=== PATIENT | male | born 1970 | race Caucasian/White ===

== ENCOUNTER 2020-01-20 10:09 | Inpatient (IN) ==
[2020-01-20] MEDS ORDERED: Acetaminophen 325 MG TABLET PO PRN (17:25)
[2020-01-20] MEDS ORDERED: Naloxone 0.4 MG/ML INJ IVP PRN (17:25)
[2020-01-20] MEDS ORDERED: *HR* Heparin 5,000 UNIT/ML VIAL IVP ONE (17:33)
[2020-01-20] MEDS ORDERED: *HR* Heparin 5,000 UNIT/ML VIAL IVP PRN ×2 (17:33)
[2020-01-20] MEDS ORDERED: Heparin 25,000 UNIT/250 ML D5W 25,000 UNIT/250 ML IV.SOLN IVC SCH (17:45)
[2020-01-20] MEDS ORDERED: Vancomycin 1,250 MG/262.5 ML IV.SOLN IVPB ONE (17:45)
[2020-01-20 17:58] LABS: Eosinophils # 0.1 K/mcL (0.0-0.6); Hematocrit 34.9 % (37.5-50.1); Hemoglobin 11.3 g/dL (12.9-16.9); Mean Corpuscular HGB Conc 32.4 g/dL (31.6-35.5); Mean Corpuscular Hemoglobin 30.2 pg (28.0-33.3); Mean Corpuscular Volume 93.3 fL (83.0-100.0); Mean Platelet Volume 9.1 fL (9.4-12.4); Platelet Count 125 K/mcL (140-400); Red Blood Count 3.74 M/mcL (4.19-5.50); Red Cell Distribution Width 13.6 % (11.5-14.5); White Blood Count 4.9 K/mcL (4.3-11.1)
[2020-01-20 18:16] LABS: BUN/Creatinine Ratio 25 (6-26); Blood Urea Nitrogen 13 mg/dL (6-20); Calcium 7.5 mg/dL (8.6-10.3); Carbon Dioxide 20 mEq/L (23-29); Chloride 105 mEq/L (98-107); Glucose 110 mg/dL (70-105); Osmolality,Calculated 261 (280-300); Potassium 3.4 mEq/L (3.5-5.1); Sodium 125 mEq/L (136-145); eGFR For African Americans > 60 (> 60); eGFR For Non-African Americans > 60 (> 60)
[2020-01-20 18:19] LABS: Lymphocytes # 0.6 K/mcL (0.6-4.6); Monocytes # 0.2 K/mcL (0.0-1.3); Platelet Estimate Normal (Normal)
[2020-01-20 18:20] LABS: Toxic Granulation Present (Not Present)
[2020-01-20] MEDS: *HR* OxyCODONE Immed Rel 5 MG TABLET PO PRN (18:22)
[2020-01-20] MEDS ORDERED: 0.9 % Sodium Chloride 1,000 ML IVC SCH (18:30)
[2020-01-20 20:07] LABS: Vancomycin,Trough 6 mcg/mL (5-10)
[2020-01-20] MEDS ORDERED: 0.9 % Sodium Chloride 1,000 ML IVC ONE (21:12)
[2020-01-20] MEDS: Vancomycin 1,250 MG/262.5 ML IV.SOLN IVPB SCH (22:26)
[2020-01-21 01:44] LABS: Hematocrit 29.6 % (37.5-50.1); Hemoglobin 9.9 g/dL (12.9-16.9); Lymphocytes # 0.9 K/mcL (0.6-4.6); Mean Corpuscular HGB Conc 33.4 g/dL (31.6-35.5); Mean Corpuscular Hemoglobin 30.7 pg (28.0-33.3); Mean Corpuscular Volume 91.9 fL (83.0-100.0); Mean Platelet Volume 9.5 fL (9.4-12.4); Platelet Count 127 K/mcL (140-400); Red Blood Count 3.22 M/mcL (4.19-5.50); Red Cell Distribution Width 13.6 % (11.5-14.5); White Blood Count 6.6 K/mcL (4.3-11.1)
[2020-01-21 01:45] LABS: INR 1.6; Prothrombin Time 17.8 Seconds (9.4-12.1)
[2020-01-21 02:11] LABS: BUN/Creatinine Ratio 22 (6-26); Blood Urea Nitrogen 11 mg/dL (6-20); Calcium 6.9 mg/dL (8.6-10.3); Carbon Dioxide 18 mEq/L (23-29); Chloride 104 mEq/L (98-107); Glucose 96 mg/dL (70-105); Osmolality,Calculated 265 (280-300); Potassium 3.5 mEq/L (3.5-5.1); Sodium 128 mEq/L (136-145); eGFR For African Americans > 60 (> 60); eGFR For Non-African Americans > 60 (> 60)
[2020-01-21 02:25] LABS: Eosinophils # 0.4 K/mcL (0.0-0.6); Monocytes # 0.4 K/mcL (0.0-1.3); Neutrophils # 4.9 K/mcL (1.6-8.9); Platelet Estimate Normal (Normal); Toxic Granulation Present (Not Present)
[2020-01-21] MEDS: *HR* OxyCODONE Immed Rel 5 MG TABLET PO PRN ×2 (02:25→12:39)
[2020-01-21] MEDS: Vancomycin 1,250 MG/262.5 ML IV.SOLN IVPB SCH ×2 (06:17→12:31)
[2020-01-21] MEDS ORDERED: Vancomycin 1,250 MG/262.5 ML IV.SOLN IVPB SCH ×2 (07:00→21:00)
[2020-01-21 13:05] LABS: Hemoglobin 10.4 g/dL (12.9-16.9)
[2020-01-21 13:22] LABS: INR 1.5; Prothrombin Time 16.8 Seconds (9.4-12.1)
[2020-01-21] MEDS ORDERED: Ethanol\\Acetic Acid\\Na Ace\\Ben 1,000 ML IRRIG.SOLN IR ONE ×2 (14:06→16:28)
[2020-01-21] MEDS ORDERED: *HR* Midazolam HCl 2 MG/2 ML VIAL ONE ×2 (14:43→16:05)
[2020-01-21] MEDS ORDERED: *HR* Propofol 200 MG/20 ML VIAL IVP ONE ×2 (14:43→15:41)
[2020-01-21] MEDS ORDERED: *HR* Succinylcholine 200 MG/10 ML VIAL IVP ONE (14:43)
[2020-01-21] MEDS ORDERED: Lidocaine -MPF 2% 2 ML VIAL ONE ×2 (14:43→15:41)
[2020-01-21] MEDS ORDERED: Dexamethasone 4 MG/ML VIAL ONE ×2 (14:43→15:46)
[2020-01-21] MEDS ORDERED: *HR* FentaNYL (PF) 100 MCG/2 ML VIAL ONE ×2 (14:43→16:05)
[2020-01-21] MEDS ORDERED: Ondansetron 4 MG/2 ML VIAL ONE ×2 (14:43→15:46)
[2020-01-21] MEDS ORDERED: Tranexamic Acid 1,000 MG/10 ML VIAL ONE (14:47)
[2020-01-21] MEDS ORDERED: ROPIVACAINE/PF/NS 0.25% 1 EACH SYRINGE INTRAART ONE (14:50)
[2020-01-21] MEDS ORDERED: Ropivacaine/PF 0.5% 30 ML VIAL ONE (14:50)
[2020-01-21] MEDS ORDERED: Ondansetron 4 MG/2 ML VIAL IVP ONE (14:54)
[2020-01-21] MEDS ORDERED: *HR* HYDROmorphone PF 0.5 MG/0.5 ML SYRINGE IVP PRN (14:54)
[2020-01-21] MEDS ORDERED: *HR* OxyCODONE Immed Rel 5 MG TABLET PO PRN (14:54)
[2020-01-21] MEDS ORDERED: Total Joint Mixture (50 ml) INTRAART ONE (15:30)
[2020-01-21] MEDS ORDERED: Clindamycin 900 MG/50 ML 900 MG/50 ML IV.SOLN IVPB ONE (15:42)
[2020-01-21] MEDS ORDERED: *HR* HYDROMORPHONE 2 MG/ML VIAL ONE (16:22)
[2020-01-21] MEDS ORDERED: *HR* PHENYLEPHRINE 1,000 MCG/10 ML SYRINGE IVP ONE (16:43)
[2020-01-21 17:41] LABS: Hematocrit 27.4 % (37.5-50.1); Hemoglobin 9.2 g/dL (12.9-16.9)
[2020-01-21] MEDS ORDERED: Naloxone 0.4 MG/ML INJ IVP PRN (18:19)
[2020-01-21] MEDS ORDERED: MOM Conc 10 ML UD.LIQ PO PRN (18:19)
[2020-01-21] MEDS ORDERED: Ringers Solution, Lactated 1,000 ML IVC SCH (18:19)
[2020-01-21] MEDS ORDERED: Sennosides 8.6 MG TABLET PO PRN (18:19)
[2020-01-21] MEDS ORDERED: *HR* Promethazine 25 MG/ML VIAL IVP PRN (18:19)
[2020-01-21] MEDS ORDERED: Ondansetron 4 MG/2 ML VIAL IVP PRN (18:19)
[2020-01-21] MEDS ORDERED: Perflutren Lipid Microsphere 1.3 ML in 0.9 % Sodium Chloride 8.7 ML IVP ONE (18:55)
[2020-01-21] MEDS: Gabapentin 300 MG CAPSULE PO SCH (19:48)
[2020-01-21] MEDS: Ascorbic Acid 500 MG TABLET PO SCH (19:48)
[2020-01-21] MEDS ORDERED: *HR* Rivaroxaban 10 MG TABLET PO SCH (21:00)
[2020-01-21] MEDS: Vancomycin 1,500 MG/265 ML IV.SOLN IVPB SCH (23:08)
[2020-01-22 02:39] LABS: Hematocrit 23.6 % (37.5-50.1); Hemoglobin 7.9 g/dL (12.9-16.9); Mean Corpuscular HGB Conc 33.5 g/dL (31.6-35.5); Mean Corpuscular Hemoglobin 31.3 pg (28.0-33.3); Mean Corpuscular Volume 93.7 fL (83.0-100.0); Mean Platelet Volume 9.8 fL (9.4-12.4); Platelet Count 154 K/mcL (140-400); Red Blood Count 2.52 M/mcL (4.19-5.50); Red Cell Distribution Width 13.9 % (11.5-14.5)
[2020-01-22 02:43] LABS: White Blood Count 15.2 K/mcL (4.3-11.1)
[2020-01-22 03:02] LABS: BUN/Creatinine Ratio 37 (6-26); Blood Urea Nitrogen 21 mg/dL (6-20); Calcium 6.5 mg/dL (8.6-10.3); Carbon Dioxide 15 mEq/L (23-29); Chloride 106 mEq/L (98-107); Glucose 246 mg/dL (70-105); Osmolality,Calculated 281 (280-300); Potassium 4.2 mEq/L (3.5-5.1); Sodium 130 mEq/L (136-145); eGFR For African Americans > 60 (> 60); eGFR For Non-African Americans > 60 (> 60)
[2020-01-22 03:12] LABS: Lymphocytes # 0.9 K/mcL (0.6-4.6); Monocytes # 0.3 K/mcL (0.0-1.3)
[2020-01-22 03:13] LABS: Platelet Estimate Normal (Normal)
[2020-01-22] MEDS: HYDROcodone BIT/Homatropine 5 MG TABLET PO PRN (04:46)
[2020-01-22] MEDS: Calcium Gluconate 1gm/50mL 1 GM/50 ML BAG IVPB SCH ×2 (07:50→09:15)
[2020-01-22] MEDS: Vancomycin 1,500 MG/265 ML IV.SOLN IVPB SCH ×3 (08:00→22:51)
[2020-01-22] MEDS: *HR* OxyCODONE Immed Rel 5 MG TABLET PO PRN ×3 (08:07→19:49)
[2020-01-22] MEDS: Gabapentin 300 MG CAPSULE PO SCH ×3 (09:12→19:49)
[2020-01-22] MEDS: Ascorbic Acid 500 MG TABLET PO SCH ×2 (09:12→16:40)
[2020-01-22] MEDS: Multivit/Ca/Min/Fe/FA 1 TAB TABLET PO SCH (09:12)
[2020-01-22] MEDS ORDERED: *HR* HYDROmorphone (PF) 1 MG/ML SYRINGE IVP PRN (11:54)
[2020-01-22] MEDS ORDERED: Heparin 25,000 UNIT/250 ML D5W 25,000 UNIT/250 ML IV.SOLN IVC SCH (12:00)
[2020-01-22 12:52] LABS: Hemoglobin 7.9 g/dL (12.9-16.9); Mean Corpuscular HGB Conc 34.3 g/dL (31.6-35.5); Mean Corpuscular Hemoglobin 31.5 pg (28.0-33.3); Mean Corpuscular Volume 91.6 fL (83.0-100.0); Mean Platelet Volume 9.5 fL (9.4-12.4); Platelet Count 237 K/mcL (140-400); Red Blood Count 2.51 M/mcL (4.19-5.50); Red Cell Distribution Width 13.7 % (11.5-14.5); White Blood Count 27.1 K/mcL (4.3-11.1)
[2020-01-22 12:54] LABS: Heparin anti-factor XA UFH 0.09 IU/mL (0.30-0.70)
[2020-01-22 12:55] LABS: INR 1.6; Prothrombin Time 18.6 Seconds (9.4-12.1)
[2020-01-22] MEDS: polyethylene glycoL 3350 17 GM POWD.PACK PO SCH (19:49)
[2020-01-22] MEDS ORDERED: *HR* Heparin 5,000 UNIT/ML VIAL IVP PRN ×2 (20:23)
[2020-01-23] MEDS: *HR* OxyCODONE Immed Rel 5 MG TABLET PO PRN ×5 (02:28→23:47)
[2020-01-23 02:35] LABS: Basophils % 0.2 %; Hemoglobin 7.4 g/dL (12.9-16.9)
[2020-01-23 02:37] LABS: Basophils # 0.1 K/mcL (0.0-0.2); Eosinophils % 0.1 %; Hematocrit 21.6 % (37.5-50.1); Immature Granulocytes % 6.7 % (0-4); Lymphocytes # 2.1 K/mcL (0.6-4.6); Lymphocytes % 7.4 %; Mean Corpuscular HGB Conc 34.3 g/dL (31.6-35.5); Mean Corpuscular Volume 90.4 fL (83.0-100.0); Mean Platelet Volume 9.6 fL (9.4-12.4); Monocytes # 1.4 K/mcL (0.0-1.3); Neutrophils # 22.4 K/mcL (1.6-8.9); Platelet Count 277 K/mcL (140-400); Red Blood Count 2.39 M/mcL (4.19-5.50); Red Cell Distribution Width 13.7 % (11.5-14.5); Segmented Neutrophils % 80.6 %; White Blood Count 27.8 K/mcL (4.3-11.1)
[2020-01-23 02:40] LABS: INR 1.6; Prothrombin Time 17.7 Seconds (9.4-12.1)
[2020-01-23 02:52] LABS: Platelet Estimate Normal (Normal); Polychromasia 1+ (Not Present)
[2020-01-23 02:55] LABS: BUN/Creatinine Ratio 30 (6-26); Blood Urea Nitrogen 17 mg/dL (6-20); Carbon Dioxide 21 mEq/L (23-29); Chloride 107 mEq/L (98-107); Glucose 119 mg/dL (70-105); Osmolality,Calculated 285 (280-300); Potassium 4.3 mEq/L (3.5-5.1); Sodium 136 mEq/L (136-145); eGFR For African Americans > 60 (> 60); eGFR For Non-African Americans > 60 (> 60)
[2020-01-23] MEDS ORDERED: *HR* Rivaroxaban 10 MG TABLET PO SCH (06:00)
[2020-01-23] MEDS: Vancomycin 1,500 MG/265 ML IV.SOLN IVPB SCH ×3 (06:32→23:38)
[2020-01-23] MEDS: HYDROcodone BIT/Homatropine 5 MG TABLET PO PRN (06:40)
[2020-01-23] MEDS: Ascorbic Acid 500 MG TABLET PO SCH ×2 (08:01→15:25)
[2020-01-23] MEDS: Gabapentin 300 MG CAPSULE PO SCH ×3 (08:02→19:26)
[2020-01-23] MEDS: Multivit/Ca/Min/Fe/FA 1 TAB TABLET PO SCH (08:02)
[2020-01-23] MEDS: polyethylene glycoL 3350 17 GM POWD.PACK PO SCH ×2 (08:02→19:26)
[2020-01-23] MEDS: *HR* Rivaroxaban 15 MG TABLET PO SCH ×2 (12:21→19:26)
[2020-01-24 02:41] LABS: Hemoglobin 7.1 g/dL (12.9-16.9); Mean Corpuscular HGB Conc 33.8 g/dL (31.6-35.5); Mean Corpuscular Hemoglobin 31.3 pg (28.0-33.3); Mean Corpuscular Volume 92.5 fL (83.0-100.0); Mean Platelet Volume 9.2 fL (9.4-12.4); Monocytes # 0.8 K/mcL (0.0-1.3); Nucleated Red Blood Cells 0.2 /100 WBC (0); Platelet Count 342 K/mcL (140-400); Red Blood Count 2.27 M/mcL (4.19-5.50); Red Cell Distribution Width 14.3 % (11.5-14.5); White Blood Count 20.1 K/mcL (4.3-11.1)
[2020-01-24 03:04] LABS: BUN/Creatinine Ratio 30 (6-26); Blood Urea Nitrogen 17 mg/dL (6-20); Calcium 6.9 mg/dL (8.6-10.3); Carbon Dioxide 20 mEq/L (23-29); Chloride 108 mEq/L (98-107); Glucose 95 mg/dL (70-105); Lymphocytes # 1.2 K/mcL (0.6-4.6); Neutrophils # 17.7 K/mcL (1.6-8.9); Osmolality,Calculated 277 (280-300); Platelet Estimate Normal (Normal); Potassium 4.2 mEq/L (3.5-5.1); Sodium 133 mEq/L (136-145); eGFR For African Americans > 60 (> 60); eGFR For Non-African Americans > 60 (> 60)
[2020-01-24] MEDS: *HR* OxyCODONE Immed Rel 5 MG TABLET PO PRN ×4 (06:00→21:16)
[2020-01-24] MEDS: Vancomycin 1,500 MG/265 ML IV.SOLN IVPB SCH ×2 (06:01→15:49)
[2020-01-24] MEDS: Ascorbic Acid 500 MG TABLET PO SCH ×2 (07:28→15:49)
[2020-01-24] MEDS: Multivit/Ca/Min/Fe/FA 1 TAB TABLET PO SCH (07:28)
[2020-01-24] MEDS: polyethylene glycoL 3350 17 GM POWD.PACK PO SCH ×2 (07:29→20:55)
[2020-01-24] MEDS: Gabapentin 300 MG CAPSULE PO SCH ×3 (07:29→20:55)
[2020-01-24] MEDS: *HR* Rivaroxaban 15 MG TABLET PO SCH ×2 (07:29→20:55)
[2020-01-24] MEDS: Calcium Gluconate 1gm/50mL 1 GM/50 ML BAG IVPB SCH ×2 (08:50→09:58)
[2020-01-24] MEDS: Sennosides/Docusate Sodium TABLET PO SCH ×2 (14:26→20:55)
[2020-01-25] MEDS ORDERED: Acetaminophen IV 1,000 MG/100 ML INFUS..BTL IVPB ONE (00:09)
[2020-01-25] MEDS: Vancomycin 1,500 MG/265 ML IV.SOLN IVPB SCH ×3 (00:28→15:54)
[2020-01-25 02:38] LABS: Hematocrit 19.7 % (37.5-50.1); Hemoglobin 6.5 g/dL (12.9-16.9); Mean Corpuscular Hemoglobin 30.8 pg (28.0-33.3); Mean Corpuscular Volume 93.4 fL (83.0-100.0); Mean Platelet Volume 9.1 fL (9.4-12.4); Platelet Count 344 K/mcL (140-400); Red Blood Count 2.11 M/mcL (4.19-5.50); Red Cell Distribution Width 15.1 % (11.5-14.5)
[2020-01-25 02:55] LABS: Calcium 6.7 mg/dL (8.6-10.3); Carbon Dioxide 21 mEq/L (23-29); Chloride 105 mEq/L (98-107); Glucose 97 mg/dL (70-105); Potassium 3.8 mEq/L (3.5-5.1); Sodium 129 mEq/L (136-145); eGFR For African Americans > 60 (> 60); eGFR For Non-African Americans > 60 (> 60)
[2020-01-25 03:00] LABS: BUN/Creatinine Ratio 23 (6-26); Blood Urea Nitrogen 13 mg/dL (6-20); Osmolality,Calculated 268 (280-300)
[2020-01-25] MEDS ORDERED: *HR* HYDROmorphone 2 MG TABLET PO ONE (03:07)
[2020-01-25] MEDS: Cefepime HCl 2,000 MG in 0.9 % Sodium Chloride Mini Bag 100 ML IVPB SCH ×2 (03:39→11:46)
[2020-01-25] MEDS ORDERED: 0.9 % Sodium Chloride 250 ML ONE ×2 (06:21→13:27)
[2020-01-25] MEDS: *HR* OxyCODONE Immed Rel 5 MG TABLET PO PRN ×4 (06:47→21:12)
[2020-01-25] MEDS: Sennosides/Docusate Sodium TABLET PO SCH ×2 (10:12→21:00)
[2020-01-25] MEDS: polyethylene glycoL 3350 17 GM POWD.PACK PO SCH ×2 (10:12→20:59)
[2020-01-25] MEDS: Multivit/Ca/Min/Fe/FA 1 TAB TABLET PO SCH (10:12)
[2020-01-25] MEDS: Ascorbic Acid 500 MG TABLET PO SCH ×2 (10:12→15:59)
[2020-01-25] MEDS: *HR* Rivaroxaban 15 MG TABLET PO SCH (10:12)
[2020-01-25] MEDS: Gabapentin 300 MG CAPSULE PO SCH ×3 (10:12→20:59)
[2020-01-25 10:42] LABS: Alanine Aminotransferase 28 Units/L (7-52); Albumin 1.7 g/dL (3.5-5.7); Albumin/Globulin Ratio 0.5 (1.1-2.2); Alkaline Phosphatase 127 Units/L (34-104); Aspartate Amino Transferase 35 Units/L (13-39); Bilirubin,Direct 0.2 mg/dL (0.0-0.2); Bilirubin,Indirect 0.3 mg/dL (0.0-1.0); Bilirubin,Total 0.5 mg/dL (0.3-1.0); Globulin 3.7 g/dL (2.4-3.5); Total Protein 5.4 g/dL (6.4-8.9)
[2020-01-25] MEDS: Albumin 25% 25gram/100mL 25 GM/100 ML IV.SOLN IVC SCH ×2 (11:47→13:36)
[2020-01-25] MEDS: Furosemide 40 MG/4 ML VIAL IVP SCH (13:37)
[2020-01-25 13:41] LABS: Hematocrit 23.4 % (37.5-50.1); Hemoglobin 7.7 g/dL (12.9-16.9); Mean Corpuscular HGB Conc 32.9 g/dL (31.6-35.5); Mean Corpuscular Hemoglobin 30.6 pg (28.0-33.3); Mean Corpuscular Volume 92.9 fL (83.0-100.0); Mean Platelet Volume 8.6 fL (9.4-12.4); Platelet Count 330 K/mcL (140-400); Red Blood Count 2.52 M/mcL (4.19-5.50); Red Cell Distribution Width 15.6 % (11.5-14.5); White Blood Count 19.6 K/mcL (4.3-11.1)
[2020-01-25] MEDS ORDERED: Calcium Gluconate 1gm/50mL 1 GM/50 ML BAG IVPB ONE (14:26)
[2020-01-25] MEDS ORDERED: Heparin 1,000 UNITS/500 mL 500 ML ONE (15:00)
[2020-01-25] MEDS ORDERED: Lidocaine/EPI 1:100k 1% 50 ML VIAL ONE (15:00)
[2020-01-25] MEDS ORDERED: Isovue-300 50ML VIAL IVP ONE (15:38)
[2020-01-26] MEDS: Vancomycin 1,500 MG/265 ML IV.SOLN IVPB SCH ×3 (00:10→16:08)
[2020-01-26 02:49] LABS: Acinetobacter baumannii by PCR Not Detected (Not Detect); Candida albicans by PCR Not Detected (Not Detect); Candida glabrata by PCR Not Detected (Not Detect); Candida krusei by PCR Not Detected (Not Detect); Candida parapsilosis by PCR Not Detected (Not Detect); Candida tropicalis by PCR Not Detected (Not Detect); Enterobacter cloacae Cmplx PCR Not Detected (Not Detect); Enterobacteriaceae by PCR Not Detected (Not Detect); Enterococcus by PCR Not Detected (Not Detect); Escherichia coli by PCR Not Detected (Not Detect); Klebsiella oxytoca by PCR Not Detected (Not Detect); Klebsiella pneumoniae by PCR Not Detected (Not Detect); Proteus by PCR Not Detected (Not Detect); Pseudomonas aeruginosa by PCR Not Detected (Not Detect); Serratia marcescens by PCR Not Detected (Not Detect); Staphylococcus aureus by PCR DETECTED (Not Detect); Staphylococcus by PCR DETECTED (Not Detect); Streptococcus agalactiae(B)PCR Not Detected (Not Detect); Streptococcus by PCR Not Detected (Not Detect); Streptococcus pneumoniae PCR Not Detected (Not Detect); Streptococcus pyogenes (A) PCR Not Detected (Not Detect); mecA Methicillin-Resist Gene DETECTED (Not Detect)
[2020-01-26 07:07] LABS: Basophils % 0.1 %; Eosinophils # 0.2 K/mcL (0.0-0.6); Hematocrit 24.5 % (37.5-50.1); Hemoglobin 8.3 g/dL (12.9-16.9); Immature Granulocytes % 4.1 % (0-4); Lymphocytes # 1.5 K/mcL (0.6-4.6); Lymphocytes % 8.5 %; Mean Corpuscular HGB Conc 33.9 g/dL (31.6-35.5); Mean Corpuscular Hemoglobin 30.5 pg (28.0-33.3); Mean Corpuscular Volume 90.1 fL (83.0-100.0); Mean Platelet Volume 8.6 fL (9.4-12.4); Monocytes # 0.7 K/mcL (0.0-1.3); Monocytes % 4.1 %; Neutrophils # 14.4 K/mcL (1.6-8.9); Platelet Count 342 K/mcL (140-400); Red Blood Count 2.72 M/mcL (4.19-5.50); Red Cell Distribution Width 15.9 % (11.5-14.5); Segmented Neutrophils % 82.2 %; White Blood Count 17.6 K/mcL (4.3-11.1)
[2020-01-26 07:26] LABS: Albumin 2.3 g/dL (3.5-5.7); BUN/Creatinine Ratio 24 (6-26); Blood Urea Nitrogen 12 mg/dL (6-20); Calcium 7.6 mg/dL (8.6-10.3); Carbon Dioxide 22 mEq/L (23-29); Chloride 110 mEq/L (98-107); Glucose 89 mg/dL (70-105); Osmolality,Calculated 277 (280-300); Phosphorous 3.3 mg/dL (2.7-4.5); Sodium 134 mEq/L (136-145); eGFR For African Americans > 60 (> 60); eGFR For Non-African Americans > 60 (> 60)
[2020-01-26 07:28] LABS: % Iron Saturation 6 % (20-55); Iron 14 mcg/dL (65-175); Transferrin 158 mg/dL (203-362)
[2020-01-26 07:44] LABS: Ferritin 131 ng/mL (20-250)
[2020-01-26 07:49] LABS: Folate 8.6 ng/mL (3.0-16.0)
[2020-01-26] MEDS: *HR* OxyCODONE Immed Rel 5 MG TABLET PO PRN ×2 (08:40→17:57)
[2020-01-26] MEDS: polyethylene glycoL 3350 17 GM POWD.PACK PO SCH ×2 (08:40→20:55)
[2020-01-26] MEDS: Multivit/Ca/Min/Fe/FA 1 TAB TABLET PO SCH (08:41)
[2020-01-26] MEDS: Gabapentin 300 MG CAPSULE PO SCH ×3 (08:42→20:55)
[2020-01-26] MEDS: Sennosides/Docusate Sodium TABLET PO SCH ×2 (08:43→20:55)
[2020-01-26] MEDS: Ascorbic Acid 500 MG TABLET PO SCH ×2 (08:43→16:14)
[2020-01-26] MEDS: Albumin 25% 25gram/100mL 25 GM/100 ML IV.SOLN IVC SCH ×2 (09:00→12:20)
[2020-01-26] MEDS ORDERED: Lidocaine Viscous Oral Soln 15 ML SOLUTION MM PRN (10:04)
[2020-01-26] MEDS ORDERED: *HR* FentaNYL (PF) 100 MCG/2 ML VIAL IVP PRN (10:04)
[2020-01-26] MEDS ORDERED: 0.9 % Sodium Chloride 500 ML IVC ONE (10:05)
[2020-01-26] MEDS: *HR* Midazolam HCl 5 MG/5 ML VIAL IVP PRN ×2 (10:40→10:45)
[2020-01-26] MEDS: Furosemide 40 MG/4 ML VIAL IVP SCH (11:28)
[2020-01-26] MEDS: *HR* Heparin 5,000 UNIT/ML VIAL SQ SCH (17:28)
[2020-01-27] MEDS: Vancomycin 1,500 MG/265 ML IV.SOLN IVPB SCH ×4 (00:28→23:27)
[2020-01-27] MEDS: *HR* OxyCODONE Immed Rel 5 MG TABLET PO PRN ×5 (02:29→23:26)
[2020-01-27 05:28] LABS: Basophils % 0.1 %; Eosinophils # 0.2 K/mcL (0.0-0.6); Eosinophils % 1.3 %; Hematocrit 22.4 % (37.5-50.1); Hemoglobin 7.5 g/dL (12.9-16.9); Immature Granulocytes % 3.2 % (0-4); Lymphocytes # 1.4 K/mcL (0.6-4.6); Lymphocytes % 9.2 %; Mean Corpuscular HGB Conc 33.5 g/dL (31.6-35.5); Mean Corpuscular Hemoglobin 30.5 pg (28.0-33.3); Mean Corpuscular Volume 91.1 fL (83.0-100.0); Mean Platelet Volume 8.5 fL (9.4-12.4); Monocytes # 0.7 K/mcL (0.0-1.3); Monocytes % 4.9 %; Neutrophils # 12.1 K/mcL (1.6-8.9); Platelet Count 301 K/mcL (140-400); Red Blood Count 2.46 M/mcL (4.19-5.50); Red Cell Distribution Width 15.6 % (11.5-14.5); Segmented Neutrophils % 81.3 %
[2020-01-27 05:46] LABS: Albumin 2.4 g/dL (3.5-5.7); BUN/Creatinine Ratio 23 (6-26); Blood Urea Nitrogen 13 mg/dL (6-20); Calcium 7.3 mg/dL (8.6-10.3); Carbon Dioxide 22 mEq/L (23-29); Chloride 109 mEq/L (98-107); Glucose 129 mg/dL (70-105); Osmolality,Calculated 278 (280-300); Potassium 3.6 mEq/L (3.5-5.1); Sodium 133 mEq/L (136-145); eGFR For African Americans > 60 (> 60); eGFR For Non-African Americans > 60 (> 60)
[2020-01-27] MEDS: *HR* Heparin 5,000 UNIT/ML VIAL SQ SCH ×2 (06:18→18:23)
[2020-01-27 07:37] LABS: Hepatitis B Surface Antibody 53.72 mIU/mL
[2020-01-27] MEDS: Ascorbic Acid 500 MG TABLET PO SCH ×2 (08:38→16:21)
[2020-01-27] MEDS: Multivit/Ca/Min/Fe/FA 1 TAB TABLET PO SCH (08:38)
[2020-01-27] MEDS: Gabapentin 300 MG CAPSULE PO SCH ×3 (08:39→23:26)
[2020-01-27] MEDS: Furosemide 40 MG/4 ML VIAL IVP SCH (08:39)
[2020-01-27] MEDS: Sennosides/Docusate Sodium TABLET PO SCH ×2 (08:39→19:53)
[2020-01-27] MEDS: polyethylene glycoL 3350 17 GM POWD.PACK PO SCH ×2 (08:41→19:53)
[2020-01-27 10:46] LABS: Hepatitis B Surface Antigen Reactive (Nonreactive)
[2020-01-27 11:12] LABS: Hepatitis C Virus Antibody Reactive (Nonreactive)
[2020-01-27] MEDS ORDERED: *HR* HYDROmorphone 2 MG TABLET PO ONE (15:35)
[2020-01-27] MEDS: DAPTOmycin 500 MG in 0.9 % Sodium Chloride 100 ML IVPB SCH (18:22)
[2020-01-27] MEDS: HYDROcodone BIT/Homatropine 5 MG TABLET PO PRN (19:56)
[2020-01-28] MEDS: *HR* OxyCODONE Immed Rel 5 MG TABLET PO PRN ×4 (03:53→21:59)
[2020-01-28] MEDS: *HR* Heparin 5,000 UNIT/ML VIAL SQ SCH ×2 (06:10→17:46)
[2020-01-28] MEDS: Vancomycin 1,500 MG/265 ML IV.SOLN IVPB SCH ×3 (08:19→23:45)
[2020-01-28] MEDS: Furosemide 40 MG/4 ML VIAL IVP SCH ×2 (08:20→10:07)
[2020-01-28] MEDS: Multivit/Ca/Min/Fe/FA 1 TAB TABLET PO SCH (08:21)
[2020-01-28] MEDS: polyethylene glycoL 3350 17 GM POWD.PACK PO SCH ×2 (08:21→21:19)
[2020-01-28] MEDS: Gabapentin 300 MG CAPSULE PO SCH ×3 (08:21→21:59)
[2020-01-28] MEDS: Ascorbic Acid 500 MG TABLET PO SCH ×2 (08:21→15:25)
[2020-01-28] MEDS: Sennosides/Docusate Sodium TABLET PO SCH ×2 (08:21→21:19)
[2020-01-28 09:12] LABS: Basophils % 0.1 %; Eosinophils # 0.2 K/mcL (0.0-0.6); Eosinophils % 1.4 %; Hemoglobin 7.6 g/dL (12.9-16.9); Immature Granulocytes % 1.5 % (0-4); Lymphocytes # 1.3 K/mcL (0.6-4.6); Lymphocytes % 9.3 %; Mean Corpuscular Hemoglobin 30.8 pg (28.0-33.3); Mean Corpuscular Volume 93.1 fL (83.0-100.0); Mean Platelet Volume 8.4 fL (9.4-12.4); Monocytes # 0.9 K/mcL (0.0-1.3); Monocytes % 6.2 %; Neutrophils # 11.1 K/mcL (1.6-8.9); Platelet Count 329 K/mcL (140-400); Red Blood Count 2.47 M/mcL (4.19-5.50); Red Cell Distribution Width 15.5 % (11.5-14.5); Segmented Neutrophils % 81.5 %; White Blood Count 13.6 K/mcL (4.3-11.1)
[2020-01-28 09:32] LABS: BUN/Creatinine Ratio 24 (6-26); Blood Urea Nitrogen 12 mg/dL (6-20); Calcium 7.4 mg/dL (8.6-10.3); Carbon Dioxide 24 mEq/L (23-29); Chloride 103 mEq/L (98-107); Glucose 90 mg/dL (70-105); Osmolality,Calculated 267 (280-300); Potassium 3.8 mEq/L (3.5-5.1); Sodium 129 mEq/L (136-145); eGFR For African Americans > 60 (> 60); eGFR For Non-African Americans > 60 (> 60)
[2020-01-28 10:04] LABS: Alanine Aminotransferase 29 Units/L (7-52); Albumin 2.2 g/dL (3.5-5.7); Albumin/Globulin Ratio 0.6 (1.1-2.2); Alkaline Phosphatase 116 Units/L (34-104); Aspartate Amino Transferase 46 Units/L (13-39); Bilirubin,Direct 0.2 mg/dL (0.0-0.2); Bilirubin,Indirect 0.6 mg/dL (0.0-1.0); Bilirubin,Total 0.8 mg/dL (0.3-1.0); C-Reactive Protein 124 mg/L (Less than 10); Total Protein 6.2 g/dL (6.4-8.9)
[2020-01-28] MEDS ORDERED: 0.9 % Sodium Chloride 250 ML ONE (10:35)
[2020-01-28] MEDS: DAPTOmycin 500 MG in 0.9 % Sodium Chloride 100 ML IVPB SCH (17:45)
[2020-01-28] MEDS: HYDROcodone BIT/Homatropine 5 MG TABLET PO PRN (23:41)
[2020-01-29] MEDS: *HR* OxyCODONE Immed Rel 5 MG TABLET PO PRN ×4 (02:23→19:54)
[2020-01-29 03:04] LABS: Basophils % 0.1 %; Eosinophils # 0.1 K/mcL (0.0-0.6); Eosinophils % 1.3 %; Hematocrit 21.1 % (37.5-50.1); Hemoglobin 6.9 g/dL (12.9-16.9); Immature Granulocytes % 1.4 % (0-4); Lymphocytes # 1.4 K/mcL (0.6-4.6); Lymphocytes % 13.7 %; Mean Corpuscular HGB Conc 32.7 g/dL (31.6-35.5); Mean Corpuscular Hemoglobin 30.8 pg (28.0-33.3); Mean Corpuscular Volume 94.2 fL (83.0-100.0); Mean Platelet Volume 8.5 fL (9.4-12.4); Monocytes # 0.8 K/mcL (0.0-1.3); Monocytes % 7.5 %; Neutrophils # 7.9 K/mcL (1.6-8.9); Platelet Count 293 K/mcL (140-400); Red Blood Count 2.24 M/mcL (4.19-5.50); Red Cell Distribution Width 15.3 % (11.5-14.5); White Blood Count 10.3 K/mcL (4.3-11.1)
[2020-01-29 03:18] LABS: BUN/Creatinine Ratio 18 (6-26); Blood Urea Nitrogen 9 mg/dL (6-20); Calcium 7.5 mg/dL (8.6-10.3); Carbon Dioxide 22 mEq/L (23-29); Chloride 104 mEq/L (98-107); Glucose 110 mg/dL (70-105); Osmolality,Calculated 267 (280-300); Potassium 3.3 mEq/L (3.5-5.1); Sodium 129 mEq/L (136-145); eGFR For African Americans > 60 (> 60); eGFR For Non-African Americans > 60 (> 60)
[2020-01-29] MEDS ORDERED: Potassium Chloride Elixir 20 MEQ/15 ML UDC PO ONE (04:07)
[2020-01-29] MEDS: *HR* Heparin 5,000 UNIT/ML VIAL SQ SCH ×2 (04:24→05:53)
[2020-01-29] MEDS: HYDROcodone BIT/Homatropine 5 MG TABLET PO PRN (05:53)
[2020-01-29] MEDS: Multivit/Ca/Min/Fe/FA 1 TAB TABLET PO SCH (07:41)
[2020-01-29] MEDS: Ascorbic Acid 500 MG TABLET PO SCH ×2 (07:41→16:31)
[2020-01-29] MEDS: polyethylene glycoL 3350 17 GM POWD.PACK PO SCH ×2 (07:41→19:56)
[2020-01-29] MEDS: Sennosides/Docusate Sodium TABLET PO SCH ×2 (07:41→19:56)
[2020-01-29] MEDS: Gabapentin 300 MG CAPSULE PO SCH ×3 (07:41→19:54)
[2020-01-29] MEDS: Vancomycin 1,500 MG/265 ML IV.SOLN IVPB SCH ×3 (07:42→23:53)
[2020-01-29] MEDS ORDERED: Isovue-370 500 ML BOTTLE IVP ONE (10:19)
[2020-01-29] MEDS: *HR* HYDROmorphone 2 MG TABLET PO PRN ×2 (11:09→23:51)
[2020-01-29] MEDS: hydrOXYzine pamoate 25 MG CAPSULE PO PRN ×2 (11:09→23:52)
[2020-01-29] MEDS: DAPTOmycin 500 MG in 0.9 % Sodium Chloride 100 ML IVPB SCH (16:32)
[2020-01-30 01:47] LABS: Hematocrit 22.1 % (37.5-50.1); Mean Corpuscular HGB Conc 31.7 g/dL (31.6-35.5); Mean Corpuscular Hemoglobin 30.2 pg (28.0-33.3); Mean Corpuscular Volume 95.3 fL (83.0-100.0); Mean Platelet Volume 8.5 fL (9.4-12.4); Platelet Count 317 K/mcL (140-400); Red Blood Count 2.32 M/mcL (4.19-5.50); Red Cell Distribution Width 15.4 % (11.5-14.5); White Blood Count 10.4 K/mcL (4.3-11.1)
[2020-01-30 02:10] LABS: Albumin 2.2 g/dL (3.5-5.7); BUN/Creatinine Ratio 23 (6-26); Blood Urea Nitrogen 11 mg/dL (6-20); Calcium 7.5 mg/dL (8.6-10.3); Carbon Dioxide 21 mEq/L (23-29); Chloride 98 mEq/L (98-107); Glucose 105 mg/dL (70-105); Magnesium 1.7 mg/dL (1.6-2.6); Osmolality,Calculated 272 (280-300); Phosphorous 2.3 mg/dL (2.7-4.5); Potassium 3.7 mEq/L (3.5-5.1); Sodium 131 mEq/L (136-145); eGFR For African Americans > 60 (> 60); eGFR For Non-African Americans > 60 (> 60)
[2020-01-30] MEDS: *HR* OxyCODONE Immed Rel 5 MG TABLET PO PRN ×3 (05:35→19:51)
[2020-01-30] MEDS: Multivit/Ca/Min/Fe/FA 1 TAB TABLET PO SCH (07:30)
[2020-01-30] MEDS: Vancomycin 1,500 MG/265 ML IV.SOLN IVPB SCH ×3 (07:30→23:09)
[2020-01-30] MEDS: Gabapentin 300 MG CAPSULE PO SCH ×3 (07:30→19:52)
[2020-01-30] MEDS: Ascorbic Acid 500 MG TABLET PO SCH ×2 (07:30→15:47)
[2020-01-30] MEDS: Sennosides/Docusate Sodium TABLET PO SCH ×2 (07:43→19:52)
[2020-01-30] MEDS: polyethylene glycoL 3350 17 GM POWD.PACK PO SCH ×2 (07:43→19:51)
[2020-01-30 08:06] LABS: Hematocrit 21.6 % (37.5-50.1); Hemoglobin 6.8 g/dL (12.9-16.9)
[2020-01-30] MEDS: hydrOXYzine pamoate 25 MG CAPSULE PO PRN ×2 (09:46→22:14)
[2020-01-30] MEDS: *HR* HYDROmorphone 2 MG TABLET PO PRN ×2 (11:09→22:14)
[2020-01-30] MEDS: DAPTOmycin 500 MG in 0.9 % Sodium Chloride 100 ML IVPB SCH (15:48)
[2020-01-30] MEDS ORDERED: 0.9 % Sodium Chloride 250 ML ONE (19:48)
[2020-01-31] MEDS: *HR* OxyCODONE Immed Rel 5 MG TABLET PO PRN ×4 (03:49→20:27)
[2020-01-31] MEDS: Ascorbic Acid 500 MG TABLET PO SCH ×2 (07:39→16:31)
[2020-01-31] MEDS: Gabapentin 300 MG CAPSULE PO SCH ×2 (07:39→20:27)
[2020-01-31] MEDS: Multivit/Ca/Min/Fe/FA 1 TAB TABLET PO SCH (07:39)
[2020-01-31] MEDS: Sennosides/Docusate Sodium TABLET PO SCH (07:40)
[2020-01-31] MEDS: polyethylene glycoL 3350 17 GM POWD.PACK PO SCH (07:40)
[2020-01-31 07:48] LABS: Basophils % 0.4 %; Eosinophils # 0.2 K/mcL (0.0-0.6); Eosinophils % 1.8 %; Hematocrit 25.6 % (37.5-50.1); Hemoglobin 8.3 g/dL (12.9-16.9); Lymphocytes # 1.4 K/mcL (0.6-4.6); Lymphocytes % 14.4 %; Mean Corpuscular HGB Conc 32.4 g/dL (31.6-35.5); Mean Corpuscular Hemoglobin 30.2 pg (28.0-33.3); Mean Corpuscular Volume 93.1 fL (83.0-100.0); Mean Platelet Volume 8.4 fL (9.4-12.4); Monocytes # 0.9 K/mcL (0.0-1.3); Monocytes % 9.3 %; Neutrophils # 7.1 K/mcL (1.6-8.9); Platelet Count 368 K/mcL (140-400); Red Blood Count 2.75 M/mcL (4.19-5.50); Red Cell Distribution Width 15.8 % (11.5-14.5); Segmented Neutrophils % 73.1 %; White Blood Count 9.7 K/mcL (4.3-11.1)
[2020-01-31] MEDS: Vancomycin 1,500 MG/265 ML IV.SOLN IVPB SCH ×2 (07:51→16:31)
[2020-01-31 07:55] LABS: BUN/Creatinine Ratio 18 (6-26); Blood Urea Nitrogen 9 mg/dL (6-20); Calcium 7.5 mg/dL (8.6-10.3); Carbon Dioxide 22 mEq/L (23-29); Chloride 105 mEq/L (98-107); Glucose 98 mg/dL (70-105); Osmolality,Calculated 269 (280-300); Potassium 3.9 mEq/L (3.5-5.1); Sodium 130 mEq/L (136-145); eGFR For African Americans > 60 (> 60); eGFR For Non-African Americans > 60 (> 60)
[2020-01-31] MEDS ORDERED: *HR* OxyCODONE Immed Rel 5 MG TABLET PO PRN (11:22)
[2020-01-31] MEDS ORDERED: *HR* Promethazine 25 MG/ML VIAL IVP PRN ×2 (11:22→15:34)
[2020-01-31] MEDS ORDERED: Ondansetron 4 MG/2 ML VIAL IVP ONE ×2 (11:22→15:34)
[2020-01-31] MEDS ORDERED: *HR* HYDROmorphone PF 0.5 MG/0.5 ML SYRINGE IVP PRN ×2 (11:22→15:34)
[2020-01-31] MEDS ORDERED: Ondansetron 4 MG/2 ML VIAL ONE (12:48)
[2020-01-31] MEDS ORDERED: Dexamethasone 4 MG/ML VIAL ONE (12:48)
[2020-01-31] MEDS ORDERED: *HR* Propofol 200 MG/20 ML VIAL IVP ONE (12:48)
[2020-01-31] MEDS ORDERED: *HR* Rocuronium Bromide 50 MG/5 ML VIAL ONE (12:48)
[2020-01-31] MEDS ORDERED: Ethanol\\Acetic Acid\\Na Ace\\Ben 1,000 ML IRRIG.SOLN IR ONE (12:48)
[2020-01-31] MEDS ORDERED: Lidocaine -MPF 2% 2 ML VIAL ONE (12:48)
[2020-01-31] MEDS ORDERED: Lidocaine -MPF 4% 5 ML AMPUL ONE (12:48)
[2020-01-31] MEDS ORDERED: *HR* FentaNYL (PF) 100 MCG/2 ML VIAL ONE ×2 (12:49→13:57)
[2020-01-31] MEDS ORDERED: Clindamycin 900 MG/50 ML 900 MG/50 ML IV.SOLN IVPB ONE ×2 (13:28→13:33)
[2020-01-31] MEDS: *HR* HYDROmorphone 2 MG TABLET PO PRN (14:47)
[2020-01-31 15:25] LABS: Hematocrit 22.8 % (37.5-50.1); Hemoglobin 7.3 g/dL (12.9-16.9)
[2020-01-31] MEDS ORDERED: MOM Conc 10 ML UD.LIQ PO PRN (15:34)
[2020-01-31] MEDS ORDERED: HYDROcodone BIT/Homatropine 5 MG TABLET PO PRN (15:34)
[2020-01-31] MEDS ORDERED: Sennosides 8.6 MG TABLET PO PRN (15:34)
[2020-01-31] MEDS ORDERED: Ondansetron 4 MG/2 ML VIAL IVP PRN (15:34)
[2020-01-31] MEDS ORDERED: Naloxone 0.4 MG/ML INJ IVP PRN (15:34)
[2020-01-31] MEDS: DAPTOmycin 500 MG in 0.9 % Sodium Chloride 100 ML IVPB SCH (16:31)
[2020-01-31] MEDS ORDERED: 0.9 % Sodium Chloride 250 ML ONE (23:30)
[2020-02-01] MEDS: Vancomycin 1,500 MG/265 ML IV.SOLN IVPB SCH ×3 (00:01→16:57)
[2020-02-01] MEDS: *HR* OxyCODONE Immed Rel 5 MG TABLET PO PRN ×4 (02:32→20:28)
[2020-02-01] MEDS: Multivit/Ca/Min/Fe/FA 1 TAB TABLET PO SCH (07:55)
[2020-02-01] MEDS: Gabapentin 300 MG CAPSULE PO SCH ×3 (07:56→20:04)
[2020-02-01] MEDS: Ascorbic Acid 500 MG TABLET PO SCH ×2 (07:56→16:43)
[2020-02-01 08:08] LABS: Hematocrit 20.3 % (37.5-50.1); Hemoglobin 6.7 g/dL (12.9-16.9); Mean Corpuscular Hemoglobin 31.2 pg (28.0-33.3); Mean Corpuscular Volume 94.4 fL (83.0-100.0); Mean Platelet Volume 8.5 fL (9.4-12.4); Platelet Count 320 K/mcL (140-400); Red Blood Count 2.15 M/mcL (4.19-5.50); Red Cell Distribution Width 15.6 % (11.5-14.5); White Blood Count 11.4 K/mcL (4.3-11.1)
[2020-02-01 08:24] LABS: BUN/Creatinine Ratio 24 (6-26); Blood Urea Nitrogen 12 mg/dL (6-20); Calcium 7.2 mg/dL (8.6-10.3); Carbon Dioxide 24 mEq/L (23-29); Chloride 104 mEq/L (98-107); Glucose 127 mg/dL (70-105); Magnesium 1.9 mg/dL (1.6-2.6); Osmolality,Calculated 271 (280-300); Potassium 4.2 mEq/L (3.5-5.1); Sodium 130 mEq/L (136-145); eGFR For African Americans > 60 (> 60); eGFR For Non-African Americans > 60 (> 60)
[2020-02-01] MEDS ORDERED: *HR* HYDROmorphone (PF) 1 MG/ML SYRINGE IVP ONE (09:07)
[2020-02-01] MEDS ORDERED: 0.9 % Sodium Chloride 250 ML ONE (14:42)
[2020-02-01] MEDS: DAPTOmycin 500 MG in 0.9 % Sodium Chloride 100 ML IVPB SCH (16:11)
[2020-02-01] MEDS: hydrOXYzine pamoate 25 MG CAPSULE PO PRN ×2 (16:46)
[2020-02-01] MEDS: *HR* HYDROmorphone 2 MG TABLET PO PRN ×2 (18:36)
[2020-02-01 19:25] LABS: Hematocrit 22.1 % (37.5-50.1); Hemoglobin 7.2 g/dL (12.9-16.9)
[2020-02-02] MEDS: hydrOXYzine pamoate 25 MG CAPSULE PO PRN ×3 (00:15→23:46)
[2020-02-02] MEDS: *HR* OxyCODONE Immed Rel 5 MG TABLET PO PRN ×5 (00:15→23:46)
[2020-02-02] MEDS: Vancomycin 1,500 MG/265 ML IV.SOLN IVPB SCH ×2 (00:15→08:02)
[2020-02-02 06:50] LABS: Hematocrit 21.6 % (37.5-50.1); Hemoglobin 6.8 g/dL (12.9-16.9); Mean Corpuscular HGB Conc 31.5 g/dL (31.6-35.5); Mean Corpuscular Hemoglobin 29.8 pg (28.0-33.3); Mean Corpuscular Volume 94.7 fL (83.0-100.0); Mean Platelet Volume 8.7 fL (9.4-12.4); Platelet Count 306 K/mcL (140-400); Red Blood Count 2.28 M/mcL (4.19-5.50); Red Cell Distribution Width 17.9 % (11.5-14.5); White Blood Count 7.9 K/mcL (4.3-11.1)
[2020-02-02 07:12] LABS: BUN/Creatinine Ratio 26 (6-26); Blood Urea Nitrogen 16 mg/dL (6-20); Calcium 7.4 mg/dL (8.6-10.3); Carbon Dioxide 24 mEq/L (23-29); Chloride 108 mEq/L (98-107); Glucose 84 mg/dL (70-105); Osmolality,Calculated 280 (280-300); Sodium 135 mEq/L (136-145); eGFR For African Americans > 60 (> 60); eGFR For Non-African Americans > 60 (> 60)
[2020-02-02] MEDS: Multivit/Ca/Min/Fe/FA 1 TAB TABLET PO SCH (08:01)
[2020-02-02] MEDS: Ascorbic Acid 500 MG TABLET PO SCH ×2 (08:01→15:20)
[2020-02-02] MEDS: *HR* HYDROmorphone 2 MG TABLET PO PRN ×2 (08:01→20:13)
[2020-02-02] MEDS: Gabapentin 300 MG CAPSULE PO SCH ×3 (08:02→20:13)
[2020-02-02] MEDS ORDERED: 0.9 % Sodium Chloride 250 ML ONE ×2 (10:49→16:04)
[2020-02-02] MEDS: Vancomycin 1,250 MG/262.5 ML IV.SOLN IVPB SCH ×2 (17:47→23:45)
[2020-02-03 05:31] LABS: Basophils % 0.4 %; Eosinophils # 0.2 K/mcL (0.0-0.6); Eosinophils % 3.5 %; Hematocrit 25.8 % (37.5-50.1); Hemoglobin 8.2 g/dL (12.9-16.9); Immature Granulocytes % 1.4 % (0-4); Lymphocytes # 1.1 K/mcL (0.6-4.6); Lymphocytes % 19.9 %; Mean Corpuscular HGB Conc 31.8 g/dL (31.6-35.5); Mean Corpuscular Volume 94.5 fL (83.0-100.0); Mean Platelet Volume 8.4 fL (9.4-12.4); Monocytes # 0.6 K/mcL (0.0-1.3); Monocytes % 10.8 %; Neutrophils # 3.6 K/mcL (1.6-8.9); Nucleated Red Blood Cells 0.4 /100 WBC (0); Platelet Count 319 K/mcL (140-400); Red Blood Count 2.73 M/mcL (4.19-5.50); Red Cell Distribution Width 18.4 % (11.5-14.5); White Blood Count 5.7 K/mcL (4.3-11.1)
[2020-02-03 05:33] LABS: INR 1.2; Prothrombin Time 13.7 Seconds (9.4-12.1)
[2020-02-03 05:47] LABS: Alanine Aminotransferase 36 Units/L (7-52); Albumin 2.1 g/dL (3.5-5.7); Albumin/Globulin Ratio 0.5 (1.1-2.2); Alkaline Phosphatase 128 Units/L (34-104); Aspartate Amino Transferase 60 Units/L (13-39); BUN/Creatinine Ratio 19 (6-26); Bilirubin,Total 0.5 mg/dL (0.3-1.0); Blood Urea Nitrogen 15 mg/dL (6-20); Calcium 7.5 mg/dL (8.6-10.3); Carbon Dioxide 27 mEq/L (23-29); Chloride 106 mEq/L (98-107); Glucose 103 mg/dL (70-105); Lactate Dehydrogenase 171 Units/L (140-271); Osmolality,Calculated 281 (280-300); Potassium 3.9 mEq/L (3.5-5.1); Sodium 135 mEq/L (136-145); Total Protein 6.1 g/dL (6.4-8.9); eGFR For African Americans > 60 (> 60); eGFR For Non-African Americans > 60 (> 60)
[2020-02-03] MEDS: *HR* OxyCODONE Immed Rel 5 MG TABLET PO PRN ×4 (06:09→23:49)
[2020-02-03] MEDS ORDERED: Furosemide 20 MG/2 ML VIAL IVP ONE (07:53)
[2020-02-03] MEDS: Ascorbic Acid 500 MG TABLET PO SCH ×2 (08:32→17:00)
[2020-02-03] MEDS: Multivit/Ca/Min/Fe/FA 1 TAB TABLET PO SCH (08:32)
[2020-02-03] MEDS: *HR* HYDROmorphone 2 MG TABLET PO PRN ×2 (08:32→21:12)
[2020-02-03] MEDS: Gabapentin 300 MG CAPSULE PO SCH ×3 (08:32→21:12)
[2020-02-03] MEDS: Vancomycin 1,250 MG/262.5 ML IV.SOLN IVPB SCH ×3 (08:33→23:44)
[2020-02-03] MEDS: *HR* Heparin 5,000 UNIT/ML VIAL SQ SCH (19:29)
[2020-02-03] MEDS: hydrOXYzine pamoate 25 MG CAPSULE PO PRN (21:12)
[2020-02-03] MEDS ORDERED: *HR* Heparin 5,000 UNIT/ML VIAL SQ SCH (22:00)
[2020-02-04] MEDS: *HR* OxyCODONE Immed Rel 5 MG TABLET PO PRN ×3 (04:21→15:32)
[2020-02-04] MEDS: *HR* Heparin 5,000 UNIT/ML VIAL SQ SCH (05:06)
[2020-02-04 05:34] LABS: Hematocrit 25.7 % (37.5-50.1); Mean Corpuscular HGB Conc 31.1 g/dL (31.6-35.5); Mean Corpuscular Hemoglobin 29.9 pg (28.0-33.3); Mean Corpuscular Volume 95.9 fL (83.0-100.0); Mean Platelet Volume 8.6 fL (9.4-12.4); Platelet Count 297 K/mcL (140-400); Red Blood Count 2.68 M/mcL (4.19-5.50); Red Cell Distribution Width 18.6 % (11.5-14.5); White Blood Count 6.5 K/mcL (4.3-11.1)
[2020-02-04 05:55] LABS: Alanine Aminotransferase 34 Units/L (7-52); Albumin/Globulin Ratio 0.5 (1.1-2.2); Alkaline Phosphatase 120 Units/L (34-104); Aspartate Amino Transferase 54 Units/L (13-39); BUN/Creatinine Ratio 20 (6-26); Bilirubin,Direct 0.1 mg/dL (0.0-0.2); Bilirubin,Indirect 0.3 mg/dL (0.0-1.0); Bilirubin,Total 0.4 mg/dL (0.3-1.0); Blood Urea Nitrogen 13 mg/dL (6-20); Calcium 7.3 mg/dL (8.6-10.3); Carbon Dioxide 25 mEq/L (23-29); Chloride 104 mEq/L (98-107); Globulin 4.1 g/dL (2.4-3.5); Glucose 102 mg/dL (70-105); Osmolality,Calculated 274 (280-300); Potassium 3.5 mEq/L (3.5-5.1); Sodium 132 mEq/L (136-145); Total Protein 6.1 g/dL (6.4-8.9); eGFR For African Americans > 60 (> 60); eGFR For Non-African Americans > 60 (> 60)
[2020-02-04] MEDS: Multivit/Ca/Min/Fe/FA 1 TAB TABLET PO SCH (09:02)
[2020-02-04] MEDS: Gabapentin 300 MG CAPSULE PO SCH ×2 (09:02→15:32)
[2020-02-04] MEDS: Vancomycin 1,250 MG/262.5 ML IV.SOLN IVPB SCH (09:03)
[2020-02-04] MEDS: Ascorbic Acid 500 MG TABLET PO SCH (09:03)
[2020-02-04 15:25] VITALS: BP 109/66
== END 2020-02-04 16:06 | DRG 302 ==
LOC: 3ANU 13:41 → INTOOBSV 13:41 → 3NENU 19:20 → SUATTDRO 01-21 11:41
PROVIDERS: ADMIT Internal Medicine; ATTEND Internal Medicine

== ENCOUNTER 2020-09-22 09:49 | Observation (INO) ==
[2020-09-22] MEDS ORDERED: Ethanol\\Acetic Acid\\Na Ace\\Ben 1,000 ML IRRIG.SOLN IR ONE ×2 (09:59→10:04)
[2020-09-22] MEDS ORDERED: Clindamycin 900 MG/50 ML 900 MG/50 ML IV.SOLN IVPB ONE (10:10)
[2020-09-22] MEDS ORDERED: Ringers Solution, Lactated 1,000 ML IVC SCH ×2 (10:15→14:21)
[2020-09-22] MEDS ORDERED: Celecoxib 200 MG CAPSULE PO ONE (10:23)
[2020-09-22] MEDS ORDERED: Ondansetron 4 MG/2 ML VIAL IVP PRN ×2 (10:23→14:21)
[2020-09-22] MEDS ORDERED: *HR* OxyCODONE Immed Rel 5 MG TABLET PO PRN (10:23)
[2020-09-22] MEDS ORDERED: *HR* OxyCODONE ER (12 HR) 10 MG TABLET PO ONE (10:23)
[2020-09-22] MEDS ORDERED: *HR* HYDROmorphone PF 0.5 MG/0.5 ML SYRINGE IVP PRN (10:23)
[2020-09-22] MEDS ORDERED: Gabapentin 300 MG CAPSULE PO ONE (10:23)
[2020-09-22] MEDS ORDERED: *HR* FentaNYL (PF) 100 MCG/2 ML VIAL ONE ×2 (10:38→11:27)
[2020-09-22] MEDS ORDERED: *HR* Rocuronium Bromide 50 MG/5 ML VIAL ONE (10:39)
[2020-09-22] MEDS ORDERED: Ondansetron 4 MG/2 ML VIAL ONE ×2 (10:39→13:25)
[2020-09-22] MEDS ORDERED: Lidocaine HCL 4 ML Topical Solution (Laryng-O-Jet Kit Sterile Pak) TP ONE (10:39)
[2020-09-22] MEDS ORDERED: Dexamethasone 4 MG/ML VIAL ONE (10:39)
[2020-09-22] MEDS ORDERED: *HR* Midazolam HCl 2 MG/2 ML VIAL ONE (10:39)
[2020-09-22] MEDS ORDERED: *HR* Propofol 200 MG/20 ML VIAL IVP ONE (10:39)
[2020-09-22] MEDS ORDERED: Lidocaine -MPF 2% 2 ML VIAL ONE (10:39)
[2020-09-22] MEDS ORDERED: *HR* Succinylcholine 200 MG/10 ML VIAL IVP ONE (10:39)
[2020-09-22] MEDS ORDERED: Ropivacaine/PF 0.5% 30 ML VIAL ONE (10:49)
[2020-09-22] MEDS ORDERED: ROPIVACAINE/PF/NS 0.25% 1 EACH SYRINGE INTRAART ONE (10:50)
[2020-09-22] MEDS ORDERED: Vancomycin 1,250 MG/262.5 ML IV.SOLN IVPB ONE (11:00)
[2020-09-22] MEDS ORDERED: Tranexamic Acid 1,000 MG/10 ML VIAL ONE (11:29)
[2020-09-22] MEDS ORDERED: *HR* PHENYLEPHRINE 1,000 MCG/10 ML SYRINGE IVP ONE ×2 (11:38→12:36)
[2020-09-22] MEDS ORDERED: Povidone-Iodine 45 ML, Sodium Chloride IRRigation 1,000 ML IR ONE (11:45)
[2020-09-22] MEDS ORDERED: TOTAL JOINT MIXTURE (100ML) INTRAART ONE (11:45)
[2020-09-22] MEDS ORDERED: Vancomycin 1,000 MG VIAL ONE (11:54)
[2020-09-22] MEDS ORDERED: Albumin Human 5% 25.0 GM/500 ML IV.SOLN ONE (12:48)
[2020-09-22] MEDS ORDERED: *HR* HYDROMORPHONE 2 MG/ML VIAL ONE (12:55)
[2020-09-22] MEDS ORDERED: Sugammadex Sodium 200 MG/2 ML VIAL IV ONE (12:58)
[2020-09-22] MEDS ORDERED: Sennosides 8.6 MG TABLET PO PRN (14:21)
[2020-09-22] MEDS ORDERED: *HR* Dextrose 50 % in Water (Vial) 50 ML VIAL IVP PRN (14:21)
[2020-09-22] MEDS ORDERED: D5% in Water 1,000 ML IVC PRN (14:21)
[2020-09-22] MEDS ORDERED: MOM Conc 10 ML UD.LIQ PO PRN (14:21)
[2020-09-22] MEDS ORDERED: Dextrose Gel 15 GM/37.5 ML TUBE PO PRN ×2 (14:21)
[2020-09-22] MEDS ORDERED: Naloxone 0.4 MG/ML INJ IVP PRN (14:21)
[2020-09-22] MEDS ORDERED: *HR* Promethazine 25 MG/ML VIAL IM PRN (14:21)
[2020-09-22] MEDS: Insulin LISPRO 300 UNITS/3 ML VIAL SUBQ SCH ×3 (15:51→21:44)
[2020-09-22 16:16] LABS: BUN/Creatinine Ratio 23 (6-26); Blood Urea Nitrogen 19 mg/dL (6-20); eGFR For African Americans > 60 (> 60); eGFR For Non-African Americans > 60 (> 60)
[2020-09-22] MEDS: Ascorbic Acid 500 MG TABLET PO SCH (18:00)
[2020-09-22] MEDS: *HR* OxyCODONE Immed Rel 5 MG TABLET PO PRN (21:49)
[2020-09-22] MEDS: Vancomycin 1,250 MG/262.5 ML IV.SOLN IVPB SCH (23:38)
[2020-09-23 04:18] LABS: BUN/Creatinine Ratio 23 (6-26); Blood Urea Nitrogen 18 mg/dL (6-20); Calcium 8.3 mg/dL (8.6-10.3); Carbon Dioxide 22 mEq/L (23-29); Chloride 105 mEq/L (98-107); Glucose 122 mg/dL (70-105); Osmolality,Calculated 281 (280-300); Potassium 3.9 mEq/L (3.5-5.1); Sodium 134 mEq/L (136-145); eGFR For African Americans > 60 (> 60); eGFR For Non-African Americans > 60 (> 60)
[2020-09-23 07:09] LABS: Basophils % 0.1 %; Eosinophils % 0.3 %; Hemoglobin 7.4 g/dL (12.9-16.9)
[2020-09-23 07:11] LABS: Hematocrit 23.6 % (37.5-50.1); Immature Granulocytes % 0.4 % (0-4); Immature Platelets 2.8 % (1.1-6.1); Lymphocytes % 13.9 %; Mean Corpuscular HGB Conc 31.4 g/dL (31.6-35.5); Mean Corpuscular Hemoglobin 28.2 pg (28.0-33.3); Mean Corpuscular Volume 90.1 fL (83.0-100.0); Mean Platelet Volume 10.1 fL (9.4-12.4); Monocytes # 0.7 K/mcL (0.0-1.3); Monocytes % 10.6 %; Neutrophils # 5.2 K/mcL (1.6-8.9); Red Blood Count 2.62 M/mcL (4.19-5.50); Segmented Neutrophils % 74.7 %
[2020-09-23 07:12] LABS: Platelet Count 84 K/mcL (140-400)
[2020-09-23] MEDS: Insulin LISPRO 300 UNITS/3 ML VIAL SUBQ SCH ×4 (08:01→20:11)
[2020-09-23] MEDS: Multivit/Ca/Min/Fe/FA 1 TAB TABLET PO SCH (08:12)
[2020-09-23] MEDS: Ascorbic Acid 500 MG TABLET PO SCH ×2 (08:12→16:57)
[2020-09-23] MEDS: *HR* OxyCODONE Immed Rel 5 MG TABLET PO PRN ×2 (08:12→16:57)
[2020-09-23] MEDS ORDERED: Aspirin Enteric Coated 81 MG Tablet PO SCH ×2 (09:00)
[2020-09-23] MEDS: Vancomycin 1,250 MG/262.5 ML IV.SOLN IVPB SCH ×2 (11:03→23:37)
[2020-09-23] MEDS: HYDROcodone BIT/Homatropine 5 MG TABLET PO PRN ×2 (11:34→18:57)
[2020-09-23] MEDS ORDERED: 0.9 % Sodium Chloride 500 ML ONE (11:55)
[2020-09-23] MEDS ORDERED: *HR* FentaNYL PATCH 12 MCG PATCH TD SCH (19:00)
[2020-09-24 01:32] LABS: Basophils % 0.4 %; Eosinophils # 0.1 K/mcL (0.0-0.6); Eosinophils % 2.2 %; Hematocrit 27.8 % (37.5-50.1); Hemoglobin 8.9 g/dL (12.9-16.9); Immature Granulocytes % 0.2 % (0-4); Lymphocytes # 0.9 K/mcL (0.6-4.6); Lymphocytes % 20.4 %; Mean Corpuscular Volume 90.6 fL (83.0-100.0); Mean Platelet Volume 10.2 fL (9.4-12.4); Monocytes # 0.7 K/mcL (0.0-1.3); Monocytes % 14.1 %; Neutrophils # 2.9 K/mcL (1.6-8.9); Red Blood Count 3.07 M/mcL (4.19-5.50); Red Cell Distribution Width 14.8 % (11.5-14.5); Segmented Neutrophils % 62.7 %; White Blood Count 4.6 K/mcL (4.3-11.1)
[2020-09-24 01:33] LABS: Platelet Count 91 K/mcL (140-400)
[2020-09-24 01:59] LABS: BUN/Creatinine Ratio 18 (6-26); Blood Urea Nitrogen 13 mg/dL (6-20); Calcium 7.9 mg/dL (8.6-10.3); Carbon Dioxide 20 mEq/L (23-29); Chloride 111 mEq/L (98-107); Glucose 104 mg/dL (70-105); Osmolality,Calculated 282 (280-300); Potassium 3.8 mEq/L (3.5-5.1); Sodium 136 mEq/L (136-145); eGFR For African Americans > 60 (> 60); eGFR For Non-African Americans > 60 (> 60)
[2020-09-24] MEDS: *HR* OxyCODONE Immed Rel 5 MG TABLET PO PRN ×4 (04:09→20:40)
[2020-09-24] MEDS: Insulin LISPRO 300 UNITS/3 ML VIAL SUBQ SCH ×4 (08:51→20:04)
[2020-09-24] MEDS: Ascorbic Acid 500 MG TABLET PO SCH ×2 (08:52→16:54)
[2020-09-24] MEDS: Multivit/Ca/Min/Fe/FA 1 TAB TABLET PO SCH (08:52)
[2020-09-24] MEDS: HYDROcodone BIT/Homatropine 5 MG TABLET PO PRN ×2 (11:41→16:54)
[2020-09-24] MEDS: Vancomycin 1,250 MG/262.5 ML IV.SOLN IVPB SCH ×2 (11:42→23:51)
[2020-09-25] MEDS: HYDROcodone BIT/Homatropine 5 MG TABLET PO PRN (00:02)
[2020-09-25] MEDS: *HR* OxyCODONE Immed Rel 5 MG TABLET PO PRN ×4 (03:33→16:09)
[2020-09-25] MEDS: Insulin LISPRO 300 UNITS/3 ML VIAL SUBQ SCH ×2 (07:39→12:39)
[2020-09-25] MEDS: Ascorbic Acid 500 MG TABLET PO SCH ×2 (07:48→16:10)
[2020-09-25] MEDS: Multivit/Ca/Min/Fe/FA 1 TAB TABLET PO SCH (07:48)
[2020-09-25 10:46] VITALS: BP 111/67
[2020-09-25] MEDS: Vancomycin 1,250 MG/262.5 ML IV.SOLN IVPB SCH (11:55)
== END 2020-09-25 18:31 | disposition home or self-care (01) ==
LOC: SAMDAY 09:49 → 3NENU 14:03 → INTOOBSV 14:04 → 3NENU 14:04
PROVIDERS: ADMIT Orthopaedic Surgery; ATTEND Orthopaedic Surgery

== ENCOUNTER 2020-11-13 23:21 | Inpatient (IN) ==
[2020-11-14] MEDS ORDERED: Isovue-370 500 ML BOTTLE IVP ONE (00:01)
[2020-11-14 00:18] LABS: Basophils % 0.6 %; Eosinophils # 0.1 K/mcL (0.0-0.6); Eosinophils % 2.1 %; Hematocrit 33.3 % (37.5-50.1); Hemoglobin 10.5 g/dL (12.9-16.9); Immature Granulocytes % 0.6 % (0-4); Lymphocytes # 1.2 K/mcL (0.6-4.6); Mean Corpuscular HGB Conc 31.5 g/dL (31.6-35.5); Mean Corpuscular Hemoglobin 27.5 pg (28.0-33.3); Mean Corpuscular Volume 87.2 fL (83.0-100.0); Mean Platelet Volume 8.4 fL (9.4-12.4); Monocytes # 0.6 K/mcL (0.0-1.3); Monocytes % 11.3 %; Neutrophils # 3.1 K/mcL (1.6-8.9); Platelet Count 203 K/mcL (140-400); Red Blood Count 3.82 M/mcL (4.19-5.50); Red Cell Distribution Width 14.4 % (11.5-14.5); Segmented Neutrophils % 61.4 %; White Blood Count 5.1 K/mcL (4.3-11.1)
[2020-11-14 00:32] LABS: Alanine Aminotransferase 20 Units/L (7-52); Albumin 2.6 g/dL (3.5-5.7); Albumin/Globulin Ratio 0.4 (1.1-2.2); Alkaline Phosphatase 118 Units/L (34-104); Aspartate Amino Transferase 35 Units/L (13-39); BUN/Creatinine Ratio 11 (6-26); Bilirubin,Total 0.4 mg/dL (0.3-1.0); Blood Urea Nitrogen 7 mg/dL (6-20); C-Reactive Protein 59 mg/L (Less than 10); Calcium 8.1 mg/dL (8.6-10.3); Carbon Dioxide 26 mEq/L (23-29); Chloride 100 mEq/L (98-107); Creatine Kinase 30 Units/L (30-223); Globulin 6.1 g/dL (2.4-3.5); Glucose 84 mg/dL (70-105); Osmolality,Calculated 267 (280-300); Potassium 3.5 mEq/L (3.5-5.1); Sodium 130 mEq/L (136-145); Total Protein 8.7 g/dL (6.4-8.9); Uric Acid 3.4 mg/dL (2.3-7.6); eGFR For African Americans > 60 (> 60); eGFR For Non-African Americans > 60 (> 60)
[2020-11-14 01:04] LABS: Adenovirus Not Detected (Not Detect); Bordetella Pertussis Not Detected (Not Detect); Chlamydophila pneumoniae Not Detected (Not Detect); Coronavirus 229E Not Detected (Not Detect); Coronavirus HKU1 Not Detected (Not Detect); Coronavirus NL63 Not Detected (Not Detect); Coronavirus OC43 Not Detected (Not Detect); Human Metapneumovirus Not Detected (Not Detect); Human Rhinovirus/Enterovirus Not Detected (Not Detect); Influenza A Subtype 2009 H1 Not Detected (Not Detect); Influenza B Not Detected (Not Detect); Mycoplasma pneumoniae Not Detected (Not Detect); Parainfluenza Virus 1 Not Detected (Not Detect); Parainfluenza Virus 2 Not Detected (Not Detect); Parainfluenza Virus 3 Not Detected (Not Detect); Parainfluenza Virus 4 Not Detected (Not Detect); Respiratory Syncytial Virus Not Detected (Not Detect); SARS-CoV-2 Not Detected (Not Detect)
[2020-11-14] MEDS ORDERED: cefTRIAXone 1,000 MG in Water for inj. (sterile) 10 ML IVP ONE (03:41)
[2020-11-14 03:51] LABS: Bilirubin,Urine Negative (Negative); Blood,Urine Negative (Negative); Clarity,Urine Clear (Clear); Color,Urine Yellow (Yellow); Glucose,Urine (UA) Normal (Normal); Ketones,Urine Negative (Negative); Leukocyte Esterase,Urine Negative (Negative); Nitrite,Urine Negative (Negative); PH,Urine 6.5 pH Units (5.0-8.0); Protein,Urine Trace mg/dL (Neg-Trace); Specific Gravity,Urine 1.022 (1.010-1.025); Urobilinogen,Urine >=8.0 mg/dL (Normal)
[2020-11-14] MEDS ORDERED: *HR* HYDROcodone/Acet 5/325 mg TABLET PO ONE (04:51)
[2020-11-14] MEDS ORDERED: Ondansetron ODT 4 MG TAB.RAPDIS SL PRN (05:10)
[2020-11-14] MEDS ORDERED: Naloxone 0.4 MG/ML INJ IVP PRN (05:10)
[2020-11-14] MEDS: 0.9 % Sodium Chloride 1,000 ML IVC SCH ×2 (06:13→15:12)
[2020-11-14] MEDS: cefTRIAXone 1,000 MG in 0.9 % Sodium Chloride Mini Bag 100 ML IVPB SCH (07:56)
[2020-11-14] MEDS: Vancomycin 1,250 MG/262.5 ML IV.SOLN IVPB SCH (15:54)
[2020-11-15] MEDS: Vancomycin 1,250 MG/262.5 ML IV.SOLN IVPB SCH (04:40)
[2020-11-15 05:17] LABS: Basophils % 0.4 %; Eosinophils # 0.1 K/mcL (0.0-0.6); Eosinophils % 2.6 %; Hematocrit 31.3 % (37.5-50.1); Hemoglobin 9.9 g/dL (12.9-16.9); Immature Granulocytes % 0.4 % (0-4); Lymphocytes # 0.7 K/mcL (0.6-4.6); Lymphocytes % 14.5 %; Mean Corpuscular HGB Conc 31.6 g/dL (31.6-35.5); Mean Corpuscular Hemoglobin 27.3 pg (28.0-33.3); Mean Corpuscular Volume 86.2 fL (83.0-100.0); Mean Platelet Volume 8.5 fL (9.4-12.4); Monocytes # 0.5 K/mcL (0.0-1.3); Monocytes % 10.6 %; Neutrophils # 3.3 K/mcL (1.6-8.9); Platelet Count 168 K/mcL (140-400); Red Blood Count 3.63 M/mcL (4.19-5.50); Red Cell Distribution Width 14.2 % (11.5-14.5); Segmented Neutrophils % 71.5 %; White Blood Count 4.6 K/mcL (4.3-11.1)
[2020-11-15 05:24] LABS: INR 1.5; Prothrombin Time 16.9 Seconds (9.4-12.1)
[2020-11-15 05:32] LABS: BUN/Creatinine Ratio 12 (6-26); Blood Urea Nitrogen 7 mg/dL (6-20); C-Reactive Protein 44 mg/L (Less than 10); Calcium 7.9 mg/dL (8.6-10.3); Carbon Dioxide 23 mEq/L (23-29); Chloride 103 mEq/L (98-107); Glucose 95 mg/dL (70-105); Osmolality,Calculated 268 (280-300); Potassium 3.9 mEq/L (3.5-5.1); Sodium 130 mEq/L (136-145); eGFR For African Americans > 60 (> 60); eGFR For Non-African Americans > 60 (> 60)
[2020-11-15] MEDS ORDERED: Povidone-Iodine 45 ML, Sodium Chloride IRRigation 1,000 ML IR ONE (06:00)
[2020-11-15] MEDS ORDERED: TOTAL JOINT MIXTURE (100ML) INTRAART ONE (06:00)
[2020-11-15] MEDS: cefTRIAXone 1,000 MG in 0.9 % Sodium Chloride Mini Bag 100 ML IVPB SCH (07:58)
[2020-11-15] MEDS ORDERED: Ethanol\\Acetic Acid\\Na Ace\\Ben 1,000 ML IRRIG.SOLN IR ONE (10:41)
[2020-11-15] MEDS ORDERED: Vancomycin 1,000 MG VIAL ONE (10:41)
[2020-11-15] MEDS ORDERED: *HR* Propofol 200 MG/20 ML VIAL IVP ONE (11:04)
[2020-11-15] MEDS ORDERED: *HR* Midazolam HCl 2 MG/2 ML VIAL ONE (11:04)
[2020-11-15] MEDS ORDERED: Lidocaine -MPF 2% 2 ML VIAL ONE (11:04)
[2020-11-15] MEDS ORDERED: *HR* FentaNYL (PF) 100 MCG/2 ML VIAL ONE (11:04)
[2020-11-15] MEDS ORDERED: Ondansetron 4 MG/2 ML VIAL ONE (12:02)
[2020-11-15] MEDS ORDERED: *HR* Succinylcholine 200 MG/10 ML VIAL IVP ONE (12:23)
[2020-11-15] MEDS ORDERED: Lidocaine HCL 4 ML Topical Solution (Laryng-O-Jet Kit Sterile Pak) TP ONE (12:24)
[2020-11-15] MEDS ORDERED: *HR* Rocuronium Bromide 50 MG/5 ML VIAL ONE (13:18)
[2020-11-15] MEDS ORDERED: *HR* Magnesium Sulfate 1 GM/2 ML VIAL ONE (13:18)
[2020-11-15] MEDS ORDERED: Dexamethasone 4 MG/ML VIAL ONE (13:19)
[2020-11-15] MEDS ORDERED: Albumin Human 5% 25.0 GM/500 ML IV.SOLN ONE (13:24)
[2020-11-15] MEDS ORDERED: ceFAZolin 2,000 MG in Water for inj. (sterile) 20 ML IVP ONE (13:31)
[2020-11-15] MEDS ORDERED: Acetaminophen IV 1,000 MG/100 ML BAG IVPB ONE (13:59)
[2020-11-15] MEDS ORDERED: *HR* Phenylephrine 10 MG/ML VIAL ONE (14:22)
[2020-11-15] MEDS ORDERED: Sugammadex Sodium 200 MG/2 ML VIAL IV ONE (14:49)
[2020-11-15] MEDS ORDERED: Nitroglycerin 0.4 MG TAB.SUBL SL PRN (15:16)
[2020-11-15] MEDS ORDERED: Naloxone 0.4 MG/ML INJ IVP PRN ×3 (15:16→15:50)
[2020-11-15] MEDS ORDERED: Ondansetron 4 MG/2 ML VIAL IVP PRN ×2 (15:16→15:50)
[2020-11-15] MEDS ORDERED: Albuterol 2.5 MG/3 ML NEBULIZER IH PRN (15:16)
[2020-11-15] MEDS: *HR* FentaNYL (PF) 100 MCG/2 ML VIAL IVP PRN ×2 (15:22→15:30)
[2020-11-15] MEDS ORDERED: Ringers Solution, Lactated 1,000 ML IVC SCH (15:50)
[2020-11-15] MEDS ORDERED: *HR* Promethazine 25 MG/ML VIAL IM PRN (15:50)
[2020-11-15] MEDS ORDERED: Sennosides 8.6 MG TABLET PO PRN (15:50)
[2020-11-15] MEDS ORDERED: MOM Conc 10 ML UD.LIQ PO PRN (15:50)
[2020-11-15] MEDS ORDERED: Ondansetron ODT 4 MG TAB.RAPDIS SL PRN (15:50)
[2020-11-15] MEDS ORDERED: Vancomycin 1,250 MG/262.5 ML IV.SOLN IVPB SCH (16:00)
[2020-11-15] MEDS ORDERED: Ringers Solution, Lactated 1,000 ML ONE (16:01)
[2020-11-15] MEDS: Ascorbic Acid 500 MG TABLET PO SCH (16:13)
[2020-11-15] MEDS: *HR* OxyCODONE Immed Rel 5 MG TABLET PO PRN ×2 (16:34→22:12)
[2020-11-15 17:38] LABS: Hematocrit 26.3 % (37.5-50.1)
[2020-11-15 17:39] LABS: Hemoglobin 8.3 g/dL (12.9-16.9)
[2020-11-15] MEDS: Vancomycin 1,500 MG/265 ML IV.SOLN IVPB SCH (18:03)
[2020-11-15] MEDS: HYDROcodone BIT/Homatropine 5 MG TABLET PO PRN (20:11)
[2020-11-16] MEDS: HYDROcodone BIT/Homatropine 5 MG TABLET PO PRN ×2 (00:26→20:57)
[2020-11-16] MEDS ORDERED: Melatonin 3 MG TABLET PO PRN (00:47)
[2020-11-16 02:37] LABS: Basophils % 0.1 %; Hematocrit 23.6 % (37.5-50.1); Hemoglobin 7.6 g/dL (12.9-16.9); Immature Granulocytes % 0.4 % (0-4); Lymphocytes % 7.1 %; Mean Corpuscular HGB Conc 32.2 g/dL (31.6-35.5); Mean Corpuscular Hemoglobin 27.7 pg (28.0-33.3); Mean Corpuscular Volume 86.1 fL (83.0-100.0); Mean Platelet Volume 8.8 fL (9.4-12.4); Monocytes # 0.5 K/mcL (0.0-1.3); Monocytes % 6.3 %; Neutrophils # 6.6 K/mcL (1.6-8.9); Platelet Count 195 K/mcL (140-400); Red Blood Count 2.74 M/mcL (4.19-5.50); Segmented Neutrophils % 86.1 %
[2020-11-16 02:45] LABS: Lymphocytes # 0.6 K/mcL (0.6-4.6); White Blood Count 7.7 K/mcL (4.3-11.1)
[2020-11-16 02:49] LABS: BUN/Creatinine Ratio 13 (6-26); Blood Urea Nitrogen 8 mg/dL (6-20); Calcium 7.7 mg/dL (8.6-10.3); Carbon Dioxide 23 mEq/L (23-29); Chloride 105 mEq/L (98-107); Glucose 144 mg/dL (70-105); Osmolality,Calculated 275 (280-300); Potassium 3.8 mEq/L (3.5-5.1); Sodium 132 mEq/L (136-145); eGFR For African Americans > 60 (> 60); eGFR For Non-African Americans > 60 (> 60)
[2020-11-16] MEDS ORDERED: Ketorolac 30 MG/ML VIAL IVP PRN (04:12)
[2020-11-16] MEDS ORDERED: traZODone 50 MG TABLET PO PRN (04:45)
[2020-11-16] MEDS: Ketorolac 30 MG/ML VIAL IVP PRN (05:08)
[2020-11-16] MEDS: Ringers Solution, Lactated 1,000 ML IVC SCH ×2 (05:15→18:14)
[2020-11-16] MEDS: Vancomycin 1,500 MG/265 ML IV.SOLN IVPB SCH ×2 (05:50→18:20)
[2020-11-16] MEDS: *HR* OxyCODONE Immed Rel 5 MG TABLET PO PRN ×3 (06:26→23:54)
[2020-11-16] MEDS: cefTRIAXone 1,000 MG in 0.9 % Sodium Chloride Mini Bag 100 ML IVPB SCH (09:14)
[2020-11-16] MEDS: Ascorbic Acid 500 MG TABLET PO SCH ×2 (09:15→15:48)
[2020-11-16] MEDS: Multivit/Ca/Min/Fe/FA 1 TAB TABLET PO SCH (09:16)
[2020-11-16] MEDS ORDERED: 0.9 % Sodium Chloride 1,000 ML ONE (10:56)
[2020-11-16] MEDS ORDERED: 0.9 % Sodium Chloride 1,000 ML IV ONE (10:58)
[2020-11-16] MEDS ORDERED: 0.9 % Sodium Chloride 250 ML ONE ×2 (14:56→20:25)
[2020-11-16] MEDS ORDERED: ceFAZolin 1,000 MG, Sodium Chloride IRRigation 1,000 ML IR ONE (17:30)
[2020-11-17 00:59] LABS: Basophils % 0.2 %; Eosinophils # 0.1 K/mcL (0.0-0.6); Eosinophils % 1.4 %; Hemoglobin 8.1 g/dL (12.9-16.9); Immature Granulocytes % 0.7 % (0-4); Lymphocytes # 0.9 K/mcL (0.6-4.6); Mean Corpuscular HGB Conc 32.4 g/dL (31.6-35.5); Mean Corpuscular Hemoglobin 28.2 pg (28.0-33.3); Mean Corpuscular Volume 87.1 fL (83.0-100.0); Mean Platelet Volume 8.5 fL (9.4-12.4); Monocytes # 0.5 K/mcL (0.0-1.3); Monocytes % 9.4 %; Neutrophils # 4.1 K/mcL (1.6-8.9); Platelet Count 141 K/mcL (140-400); Red Blood Count 2.87 M/mcL (4.19-5.50); Red Cell Distribution Width 13.7 % (11.5-14.5); Segmented Neutrophils % 72.3 %; White Blood Count 5.6 K/mcL (4.3-11.1)
[2020-11-17 01:14] LABS: BUN/Creatinine Ratio 13 (6-26); Blood Urea Nitrogen 8 mg/dL (6-20); Calcium 7.6 mg/dL (8.6-10.3); Carbon Dioxide 22 mEq/L (23-29); Chloride 112 mEq/L (98-107); Glucose 94 mg/dL (70-105); Osmolality,Calculated 282 (280-300); Potassium 4.1 mEq/L (3.5-5.1); Sodium 137 mEq/L (136-145); eGFR For African Americans > 60 (> 60); eGFR For Non-African Americans > 60 (> 60)
[2020-11-17] MEDS: *HR* OxyCODONE Immed Rel 5 MG TABLET PO PRN ×4 (03:46→21:35)
[2020-11-17] MEDS: Vancomycin 1,500 MG/265 ML IV.SOLN IVPB SCH ×2 (06:13→18:56)
[2020-11-17] MEDS: cefTRIAXone 1,000 MG in 0.9 % Sodium Chloride Mini Bag 100 ML IVPB SCH (08:30)
[2020-11-17] MEDS: Ascorbic Acid 500 MG TABLET PO SCH ×2 (08:30→16:17)
[2020-11-17] MEDS: Multivit/Ca/Min/Fe/FA 1 TAB TABLET PO SCH (08:30)
[2020-11-17] MEDS: Ringers Solution, Lactated 1,000 ML IVC SCH (08:32)
[2020-11-17] MEDS: HYDROcodone BIT/Homatropine 5 MG TABLET PO PRN (17:56)
[2020-11-18] MEDS: HYDROcodone BIT/Homatropine 5 MG TABLET PO PRN ×3 (00:51→17:10)
[2020-11-18 02:09] LABS: Basophils % 0.4 %; Eosinophils # 0.2 K/mcL (0.0-0.6); Eosinophils % 3.8 %; Hematocrit 26.9 % (37.5-50.1); Hemoglobin 8.6 g/dL (12.9-16.9); Immature Granulocytes % 0.6 % (0-4); Lymphocytes # 1.2 K/mcL (0.6-4.6); Lymphocytes % 24.4 %; Mean Corpuscular Hemoglobin 27.7 pg (28.0-33.3); Mean Corpuscular Volume 86.5 fL (83.0-100.0); Mean Platelet Volume 8.7 fL (9.4-12.4); Monocytes # 0.6 K/mcL (0.0-1.3); Monocytes % 12.9 %; Neutrophils # 2.8 K/mcL (1.6-8.9); Platelet Count 185 K/mcL (140-400); Red Blood Count 3.11 M/mcL (4.19-5.50); Segmented Neutrophils % 57.9 %; White Blood Count 4.8 K/mcL (4.3-11.1)
[2020-11-18 02:25] LABS: BUN/Creatinine Ratio 15 (6-26); Blood Urea Nitrogen 9 mg/dL (6-20); Calcium 7.7 mg/dL (8.6-10.3); Carbon Dioxide 26 mEq/L (23-29); Chloride 107 mEq/L (98-107); Glucose 91 mg/dL (70-105); Osmolality,Calculated 278 (280-300); Potassium 3.9 mEq/L (3.5-5.1); Sodium 135 mEq/L (136-145); eGFR For African Americans > 60 (> 60); eGFR For Non-African Americans > 60 (> 60)
[2020-11-18] MEDS: *HR* OxyCODONE Immed Rel 5 MG TABLET PO PRN ×3 (05:14→18:09)
[2020-11-18] MEDS: Vancomycin 1,500 MG/265 ML IV.SOLN IVPB SCH ×2 (05:16→17:10)
[2020-11-18] MEDS: Multivit/Ca/Min/Fe/FA 1 TAB TABLET PO SCH (08:44)
[2020-11-18] MEDS: Ascorbic Acid 500 MG TABLET PO SCH ×2 (08:44→17:10)
[2020-11-18] MEDS: cefTRIAXone 1,000 MG in 0.9 % Sodium Chloride Mini Bag 100 ML IVPB SCH (08:45)
[2020-11-18] MEDS ORDERED: Ketorolac 30 MG/ML VIAL IVP PRN (11:36)
[2020-11-18] MEDS: Ketorolac 30 MG/ML VIAL IVP PRN (21:49)
[2020-11-19] MEDS: *HR* OxyCODONE Immed Rel 5 MG TABLET PO PRN ×4 (00:20→19:33)
[2020-11-19] MEDS: HYDROcodone BIT/Homatropine 5 MG TABLET PO PRN ×4 (02:02→23:30)
[2020-11-19] MEDS: Vancomycin 1,500 MG/265 ML IV.SOLN IVPB SCH ×2 (06:26→17:53)
[2020-11-19] MEDS: cefTRIAXone 1,000 MG in 0.9 % Sodium Chloride Mini Bag 100 ML IVPB SCH (08:27)
[2020-11-19] MEDS: Ascorbic Acid 500 MG TABLET PO SCH ×2 (08:28→17:17)
[2020-11-19] MEDS: Multivit/Ca/Min/Fe/FA 1 TAB TABLET PO SCH (08:29)
[2020-11-20] MEDS: *HR* OxyCODONE Immed Rel 5 MG TABLET PO PRN ×3 (03:23→16:18)
[2020-11-20 04:42] LABS: Basophils % 0.5 %; Eosinophils # 0.2 K/mcL (0.0-0.6); Hematocrit 26.3 % (37.5-50.1); Hemoglobin 8.6 g/dL (12.9-16.9); Immature Granulocytes % 0.7 % (0-4); Lymphocytes % 25.5 %; Mean Corpuscular HGB Conc 32.7 g/dL (31.6-35.5); Mean Corpuscular Hemoglobin 28.3 pg (28.0-33.3); Mean Corpuscular Volume 86.5 fL (83.0-100.0); Mean Platelet Volume 8.6 fL (9.4-12.4); Monocytes # 0.5 K/mcL (0.0-1.3); Monocytes % 11.9 %; Neutrophils # 2.3 K/mcL (1.6-8.9); Platelet Count 208 K/mcL (140-400); Red Blood Count 3.04 M/mcL (4.19-5.50); Red Cell Distribution Width 14.6 % (11.5-14.5); Segmented Neutrophils % 56.4 %
[2020-11-20 04:56] LABS: BUN/Creatinine Ratio 21 (6-26); Blood Urea Nitrogen 12 mg/dL (6-20); Calcium 8.1 mg/dL (8.6-10.3); Carbon Dioxide 25 mEq/L (23-29); Chloride 108 mEq/L (98-107); Glucose 95 mg/dL (70-105); Osmolality,Calculated 278 (280-300); Potassium 3.9 mEq/L (3.5-5.1); Sodium 134 mEq/L (136-145); eGFR For African Americans > 60 (> 60); eGFR For Non-African Americans > 60 (> 60)
[2020-11-20] MEDS: Vancomycin 1,500 MG/265 ML IV.SOLN IVPB SCH (06:26)
[2020-11-20] MEDS: HYDROcodone BIT/Homatropine 5 MG TABLET PO PRN ×2 (06:26→13:28)
[2020-11-20] MEDS: Ascorbic Acid 500 MG TABLET PO SCH ×2 (08:53→18:00)
[2020-11-20] MEDS: cefTRIAXone 1,000 MG in 0.9 % Sodium Chloride Mini Bag 100 ML IVPB SCH (08:53)
[2020-11-20] MEDS: Multivit/Ca/Min/Fe/FA 1 TAB TABLET PO SCH (08:53)
[2020-11-20 17:16] VITALS: BP 108/76
== END 2020-11-20 18:55 | DRG 305 ==
LOC: 3NENU 23:21 → EMEROOARM 23:21 → SUATTDRO 11-14 04:31 → 3NENU 11-14 04:41
PROVIDERS: ADMIT Student in an Organized Health Care Education/Training Program; ATTEND Student in an Organized Health Care Education/Training Program